=== PATIENT | male | born 1945 | race Caucasian/White ===

== ENCOUNTER 2025-06-21 17:11 | Emergency (ER) | payer MEDICARE, OTHER, SELFPAY ==
--- OUTSIDE RECORDS SUMMARY | 2021-04-07 07:46 | XMS_ITS | Continuity of Care Document ---
Author Organization [facility] ic Address [address] [place] [address] Phone Care Team Providers Care Complex Care Nurse Name Role Phone Lico [facility], Griselda Unavailable Unavailable Allergies, Adverse Reactions, Alerts Substance Reaction Status Criticality No Known Allergies Active No Inform ation Medications Medication Instructions Dosage Effective Dates (start - stop) Status Comments gatifloxacin 0.5 % eye drops instill 1 drop by ophthalmic route Right Eye 3 Times a Day 3 Days Before Surgery, continue for 7 days after surgery, then stop - Active Fill upon pt request. May Substitute with Vigamox or Zymaxid or Moxifloxacin ketorolac 0.5 % eye drops instill 1 drop by ophthalmic route Right Eye 2 times a day 3 days before surgery, then 4 times a day after surgery and taper as instructed - Active Fill upon pt request. prednisolone acetate 1 % eye drops,suspension instill 1 drop by ophthalmic route Right eye 4 times a day after surgery for 1 week, then Taper as Instructed - Active Fill upon pt request. gatifloxacin 0.5 % eye drops instill 1 drop by ophthalmic route Left Eye 3 Times a Day 3 Days Before Surgery, continue for 7 days after surgery, then stop - Active May Substitute with Vigamox or Zymaxid or Moxifloxacin ketorolac 0.5 % eye drops instill 1 drop by ophthalmic route Left Eye 2 times a day 3 days before surgery, then 4 times a day after surgery and taper as instructed - Active prednisolone acetate 1 % eye drops,suspension instill 1 drop by ophthalmic route Left eye 4 times a day after surgery for 1 week, then Taper as Instructed - Active AMLODIPINE BESYLATE (unknown strength) Not Available - Active METOPROLOL TARTRATE (unknown strength) Not Available - Active MULTIVITAMIN (unknown strength) Not Available - Active MAGNESIUM (unknown strength) Not Available - Active IBUPROFEN (unknown strength) Not Available - Active MELATONIN (unknown strength) Not Available - Active ZINC (unknown strength) Not Available - Active Procedures Procedure Date IOL Master Extracapsular Cataract Removal Extracapsular Cataract Removal IOL Master IOL Master IOL Master HIGHWAY INSPECTOR Extended E&M HIGHWAY INSPECTOR Extended E&M IOL Master Advance Directives Directive Yes / No Effective Date File Name No Information Encounters Encounter Description Practice Location Reason(s) For Visit Diagnoses Date Provider Providers Copied on Encounter [facility], [address] [place], [id number] , [place] tel: [phone] [facility] No Information [address]os[address] [place], [id number] , [place]. tel: [phone] [facility], [address] [place], [id number] , [place] tel: [phone] [facility] No Information [address] [place], [id number] , [place]. tel: [phone] Referring Provider: Lizandro Rico, [facility] [address], [address]. tel:[phone] [facility], [address] [place], [id number] , [place] tel: [phone] [facility] No Information [address] [place], [id number] , [place]. tel: [phone] Referring Provider: Lizandro Rico, [facility] [address], [address]. tel:[phone] [facility], [address] [place], [id number] , tel: [phone] [facility] Combined forms of age-related cataract, right eye [address] [place], [id number] , . tel: [phone] Referring Provider: Lizandro Rico, [facility] [address] [place] [address], [address]. tel:[phone] INSPECTOR Extended E&M [facility], [address] [place], [id number] , tel: [phone] [facility] [place] blurry vision (chief complaint) Combined forms of age-related cataract, bilateralMeibomian gland dysfunction left eye, upper and lower eyelidsMeibomian gland dysfunction right eye, upper and lower eyelidsBlepharochalas isVitreous degeneration of left eyeBenign neoplasm of connective tissue of eyelidPuckering of macula, bilateralOpen angle with borderline findings, low risk, bilateralMyopia, bilateralPresbyopia [address] [place] [id number] , . tel: [phone] Referring Provider: Lizandro Rico, [facility] [address] [place] [address], [address]. tel:[phone] Family History Family Member Type Diagnosis Age At Onset Sister Problem (finding) degenerative disorder o f macula Payers Payer name Insurance type Covered democrat ID Authoriza tierick(s) [employer] 16 [id number] Social History Type Description Quantity Date Captured Comments Alcohol Use Details Unknown Caffeine Use Details Unknown Tobacco Use Status No Information Smoking Status No Information Sex Male Chief Complaint And Reason For Visit No Information Reason For Referral Reason For Referral No Information Plan Of Treatment Date Type Action Status Referral Referred To: Walter Rivera MD [facility] [place] Ordered: Referrals: Family Medicine. Walter Rivera MD ordered History Of Present Illness Encounter Date Complaint History Of Prese nt Illness blurry vision Pt complains of VA OU decreasing over the last year. Pt has difficulty reading fine print and watching TV. Pt denies dryness and pain OU.Screening for COVID-19: Patient reports no close contact with known COVID-19. Patient denies any COVID-19 symptoms or recent travel. 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
[2025-06-21 17:12] VITALS: BP 141/81; PULSE 60; RESP 16; TEMP 36.6; O2SAT 96; BMI 28.9
--- NOTE | 2025-06-21 17:42 | CRLHL7_ITS ---
For Patients: As a result of the Century Cures Act, medical imaging exams and procedure reports are released immediately into your electronic medical record. You may view this report before your referring provider. If you have questions, please contact your health care provider. INDICATION: Syncope. TECHNIQUE: Chest 2 views. COMPARISON: None. FINDINGS: Cardiovascular and mediastinum: Heart size and vasculature are normal in caliber and appearance. Lungs and pleural spaces: Left basilar atelectasis. No sign of infiltrate or mass. No sign of pleural effusion. No pneumothorax. Bones and soft tissues: No significant findings. IMPRESSION: No acute or significant findings. Dictated by John Jimenez MD @ 06/21/2025 6:06:50 PM (Electronically Signed)
--- NOTE | 2025-06-21 17:42 | CRLHL7_ITS ---
For Patients: As a result of the Cures Act, medical imaging exams and procedure reports are released immediately into your electronic medical record. You may view this report before your referring provider. If you have questions, please contact your health care provider. Indication: Trauma. Technique: Left hand, 3 views. Comparison: None. Findings/Impression: Bones: Acute mildly displaced 5th digit proximal phalangeal base fracture. Additional lucency involving the 5th digit metacarpal base, possibly nondisplaced fracture. Recommend correlation with point tenderness. Joint spaces: Degenerative changes most pronounced at the triscaphe joint. Soft tissues: Associated soft tissue swelling. Dictated by John Jimenez MD @ 06/21/2025 6:08:55 PM (Electronically Signed)
--- NOTE | 2025-06-21 17:49 | ED.GENADULT ---
HPI - General Adult General Chief complaint: Fall/Minor Trauma Stated complaint: Injured Left Pinkie finger Time Seen by Provider: 06/21/25 17:22 Source: patient Mode of arrival: ambulatory Limitations: no limitations History of Present Illness HPI narrative: 80-year-old male presents to the emergency department with significant other for evaluation of hand injury. [place] [facility], in town for a wedding. He was at set waiting this afternoon, about 2 hours prior to arrival. He was walking up hill in the parking lot to Greet his son at the door of the rastafari. When he reached the door of the chart, he suddenly felt dizzy. He specifically describes this dizzy as a lightheadedness, there were no neurological changes, no vertigo like symptoms. He was still feeling lightheaded when he went to turn to go into the rastafari a few seconds later and in doing so fell into the door of the rastafari and lung down to the ground. There was no loss of consciousness. This was a very witnessed event. No seizure-like activity. He did fall onto his side. Reports hitting his elbow and right hand. He notes injury and some deformity of the right hand specifically at the 5th finger of the left hand. He does not take any anticoagulants. There is no altered mental status. Friends and family helped him up and helped him into the rastafari where he sat through the wedding with no difficulty. After completion of the wedding, they said their goodbyes to friends and family, he was able to walk easily back to the car and comes in for evaluation of a hand injury. He definitely downplays the lightheadedness but on specific questioning, it sounds like he had a similar episode about a week ago while he was working out in the [place]. It probably lasted for about 5 minutes. He sat down on a tree stump and eventually a past, therefore he decided it was not worth investigating further. He denies a history of AFib for arrhythmia. He has no history of coronary artery disease but admits that he has never had a reason to have an investigation for this. He does take metoprolol. He is not sure of his dose. But as we discussed possible doses further, he is pretty confident that he takes 50 mg tablets and uses 1-1/2 of them. He thinks it is 75 mg. Unfortunately we do not have a way to access these records. He denies any other areas of pain or injury. He is not having any chest pain. He denies any recent shortness of breath, fevers or illness. No dysuria or other symptoms of infection anywhere. He has no open sores or wounds. Denies a history of diabetes. He does follow up with his primary provider at least annually. Reports that he is up-to-date on typical preventative screenings and vaccines. Past medical history notable for gout and hypertension. Nonsmoker. Denies any alcohol use in the past 6 years. ROS is notable for the syncopal and hand symptoms as above. Otherwise denies times 12 systems today. Related Data Home Medications ?Medication ?Instructions ?Recorded ?Confirmed metoprolol tartrate 37.5 mg tablet 37.5 mg PO DAILY 06/21/25 06/21/25 Previous Rx's ?Medication ?Instructions ?Recorded losartan 50 mg tablet 50 mg PO DAILY #30 tabs 06/21/25 Allergies Allergy/AdvReac Type Severity Reaction Status Date / Time No Known Drug Allergies Allergy Verified 06/21/25 17:20 PFSH PFS Social History Smoking Status: Never smoker How often do you have a drink containing alcohol: never AUDIT-C Alcohol total score: 0 Non-prescribed substance use: denies use service: Yes Exam Const: Vital Signs, click to edit/add: Vital Signs - 24 hr 06/21/25 17:12 06/21/25 18:02 06/21/25 19:14 Temperature 97.8 F 97.8 F Pulse Rate [Right Pulse Oximeter] 60 60 Respiratory Rate 16 16 Blood Pressure [Ri ght Upper Arm] 141/81 H 141/81 H Pulse Oximetry 96 96 96 Oxygen Delivery Me thod Room Air Room Air Documenting provider has reviewed patient's vital signs: yes Common normals: no apparent distress and alert General appearance: cooperative and well kempt Other: Friendly, good historian. No fluctuations in story HENMT: Common normals: normocephalic, head/scalp atraumatic, moist oral mucous membranes and oropharynx normal Head and scalp: normocephalic and atraumatic Face and sinus: normal facial exam Mouth: oral and palatal mucosa normal Throat: posterior oropharynx normal Eye: Common normals: conjunctivae normal General eye: normal appearance of both eyes Conjunctiva: conjunctiva(e) normal Neck & C-Spine: Common normals: full ROM and no lymphadenopathy General: normal visual inspection Resp: Common normals: normal respiratory effort, no use of accessory muscles and clear to auscultation bilaterally Effort & inspection: able to speak in complete sentences Auscultation: clear to auscultation bilaterally Cardio: Common normals: regular rate, regular rhythm, S1 normal heart sound, S2 normal heart sound and no murmurs Rate: regular rate Rhythm: regular rhythm Heart sounds: S1 normal and S2 normal GI: Common normals: Normal to inspection, nondistended, normoactive bowel sounds present, soft to palpation, non-tender, no hepatosplenomegaly and no masses Palpation: soft and no hepatosplenomegaly Extremity: Other: Left elbow has a couple of superficial abrasions but no deformity. Normal range of motion. The left wrist has normal range of motion, no deformity or bruising. He has swelling and lateral deviation of the left 5th digit. Some tenderness and swelling of the left 5th metacarpal also. Capillary refill is intact. There is a small abrasion on the left 5th proximal phalanx as well. Remainder of the fingers and thumb have normal range of motion with no deficits. Neuro: Common normals: moves all extremities and no focal motor deficits Sensorium/orientation: alert Cranial nerves: CN normal except as noted Speech: speech normal Gait (neuro): normal gait Motor exam: strength 5/5 throughout, no tremor noted and no movement abnormalities noted Psych: Common normals: speech normal Appearance: well kempt Attitude: engaged Activity/motor behavior: appropriate eye contact Speech: normal speech Mood and affect: euthymic mood Insight: insight good Judgement: judgment good Skin: Common normals: no rashes or lesions noted General skin exam: no rashes or lesions noted Course Course ED Course: 80-year-old male with presyncopal episode today and a similar episode last week. His heart rate is around 60, I suspect he may be bradycardic and this may be worsened by his metoprolol but I cannot exclude an arrhythmia, coronary artery disease, congestive heart failure, infectious etiology, dehydration, electrolyte abnormality or other contributing factors. I do seem far more concerned to put this that he is that his family seems appreciative of this. I recommended that we obtain an EKG, typical screening labs for syncope, chest x-ray. No the hand does seem like it probably has a fracture at the finger or more likely the 5th metacarpal. Will obtain x-ray of this as well. Reevaluation(s) Time of Reevaluation #1: 20:06 Reevaluation #1: Counseled patient on findings. Overall his blood work looks excellent, chest x-ray looks good. There mild fractures of his proximal 5th finger and distal 5th metacarpal. They are not displaced. These are splinted and rangel taped to the ring finger with excellent anatomic alignment. Patient counseled on wearing the finger foam splint and rangel tape as much as possible for the next 4 weeks. May remove to shower. Will need to make a follow-up appointment with his primary care team or an orthopedic provider in a couple of weeks to have this re-examined. Or importantly we talked about the presyncopal spells. I do think this is related to his metoprolol. I think he is having some postural dizziness and bradycardia. He is visiting from out of town, it would be better for him if he did his workup through his primary care team. I recommend that he have a Holter monitor and echo ordered. I do recommend that he stop his metoprolol for now. He will start losartan Monday morning 1 pill daily. This has been sent to his pharmacy. He is returning back to his home tomorrow. I let him know that his bradycardia should improve in 3-5 days and his dizzy spells should improve if they were related to the metoprolol. He needs to bring the paperwork I have provided with him to his primary care appointment to help facilitate further workup. Alarm symptoms reviewed that would warrant re-evaluation in the ED in the interim. He verbalizes understanding and agreement and was ultimately thankful for the additional workup. Vital Signs Vital signs: Initial Vital Signs Temperature 97.8 F 06/21/25 17:12 Temperature Source Temporal Artery Scan 06/21/25 17:12 Pulse Rate 60 06/21/25 17:12 Pulse Rhythm Regular 06/21/25 17:12 Pulse Strength 3+ Normal 06/21/25 17:12 Respiratory Rate 16 06/21/25 17:12 Blood Pressure 141/81 H 06/21/25 17:12 Blood Pressure Mean 101 06/21/25 17:12 Blood Pressure Position Sitting 06/21/25 17:12 Pulse Oximetry 96 06/21/25 17:12 Oxygen Delivery Method Room Air 06/21/25 17:12 Vital Signs Temperature 97.8 F 06/21/25 17:12 Pulse Rate 60 06/21/25 17:12 Respiratory Rate 16 06/21/25 17:12 Blood Pressure 141/81 H 06/21/25 17:12 Pulse Oximetry 96 06/21/25 17:12 Oxygen Delivery Method Room Air 06/21/25 17:12 Temperature 97.8 F 06/21/25 18:02 Pulse Rate 60 06/21/25 18:02 Respiratory Rate 16 06/21/25 18:02 Blood Pressure 141/81 H 06/21/25 18:02 Pulse Oximetry 96 06/21/25 19:14 Oxygen Delivery Method Room Air 06/21/25 18:02 Medical Decision Making Lab Data Lab results reviewed: Yes I reviewed the patient's lab results Lab results narrative: No significant leukocytosis, no anemia. Normal electrolytes. Normal liver function, no elevation of inflammatory markers. No signs of heart failure or coronary artery disease. Excellent blood work Labs: Lab Results 06/21/25 Range/Units 18:17 WBC 7.76 (4.50-11.00) K/uL RBC 4.63 (4.30-5.90) m/uL Hgb 14.4 (13.5-17.5) gm/dL Hct 43.4 (37.0-53.0) % MCV 94 (80-100) fL MCH 31 (26-34) pg MCHC 33 (32-36) gm/dL RDW Coeff of Laura 13.1 (11.5-15.5) % Plt Count 189 (140-440) K/uL Neut % (Auto) 69.5 (42.0-72.0) % Lymph % (Auto) 17.1 L (20-44) % [place] % (Auto) 9.4 (0.0-11.0) % Eos % (Auto) 3.1 (0.0-7.0) % Baso % (Auto) 0.8 (0.0-3.0) % Neut # (Auto) 5.39 (1.7-7.0) K/uL Lymph # (Auto) 1.30 (0.90-2.90) K/uL [place] # (Auto) 0.70 (0.00-0.90) K/UL Eos # (Auto) 0.24 (0.00-0.50) K/uL Baso # (Auto) 0.06 (0.00-0.30) K/uL Abs Immat Gran (auto) 0.01 (0.00-0.30) K/uL Imm/Tot Granulo (auto) 0.1 % Sodium 137 (135-149) mmol/L Potassium 4.0 (3.6-5.1) mmol/L Chloride 107 (96-114) mmol/L Carbon Dioxide 23 (20-32) mmol/L Anion Gap 7 (7-15) mEq/L BUN 19 (7-30) mg/dL Creatinine 0.8 (0.5-1.5) mg/dL Estimated Creat Clear 69.64 Estimated GFR 90 ml/min Glucose 115 (60-115) mg/dL Lactate 1.1 (0.5-1.9) mmol/L Calcium 9.0 (8.4-10.6) mg/dL Total Bilirubin 0.6 (0.1-1.5) mg/dL AST 33 (12-35) U/L ALT 33 (4-50) U/L Alkaline Phosphatase 71 (40-150) U/L Troponin I < 0.01 (0.01-0.04) ng/mL C-Reactive Protein < 0.5 L (0.5-1.0) mg/dL NT-Pro-B Natriuret Pep 397 H (See Note) pg/mL Total Protein 7.3 (6.0-8.3) g/dL Albumin 4.2 (3.3-5.0) g/dL Imaging Data Chest x-ray: Attestation: I have reviewed the pertinent imaging results. My impression: Normal chest x-ray. No significant infiltrate, cardiomegaly or signs of any heart failure. Radiologist's impression: IMPRESSION: No acute or significant findings. Dictated by John Jimenez MD @ 06/21/2025 6:06:50 PM X-ray left hand: Attestation: I have reviewed the pertinent imaging results. My impression: Tiny fracture at the proximal 5th phalanx, near articulation of 2nd tiny fracture at distal 5th meta carpal. Remainder of hand appears normal Radiologist's impression: Findings/Impression: Bones: Acute mildly displaced 5th digit proximal phalangeal base fracture. Additional lucency involving the 5th digit metacarpal base, possibly nondisplaced fracture. Recommend correlation with point tenderness. Joint spaces: Degenerative changes most pronounced at the triscaphe joint. Soft tissues: Associated soft tissue swelling. Dictated by John Jimenez MD @ 06/21/2025 6:08:55 PM ECG Data Attestation: I personally reviewed and interpreted this ECG as follows: Prior ECG tracings: not available for review Interpretation: Sinus rhythm with a rate of 60. Intervals and axis appear normal. p-waves are biphasic. No significant ST or T-wave abnormalities. No ischemic changes. Discharge Plan Discharge Clinical Impression: Pre-syncope, Bradycardia, Fracture of finger of left hand Patient Disposition: Home w/ Parent or Adult Condition: Improved Instructions: Finger Fracture (ED) Additional Instructions: As we discussed, the finger fracture is fairly mild and it is not displaced. This means that the pieces of the fracture do align well and is not likely to need surgery. We have to keep it in the splint because the tendons it pull on the finger will cause things to heal improperly if it is not splinted. You may remove the splint to wash her hand or to shower, but try to keep it on at least 90% of the day. You will need to follow-up with an orthopedic provider in a couple of weeks to make sure that this is healing properly. Please have your primary care team help arrange this for you if you cannot schedule with an orthopedic provider your self. The overall prognosis for this is quite good. It is okay to use Tylenol or ibuprofen as needed for mild discomfort. Plan to wear the splint for 4 weeks. Thank you for allowing me to properly workup these lightheaded spells that you have been having. Our workup did not show any problems with your electrolytes, kidneys, there were no signs of heart attack or infection. It did show through monitoring in the emergency room that your heart rate has been running lower. This most likely is a side effect of your metoprolol. This is a great medication for many people to treat her blood pressure but sometimes as people age, they do not tolerate this medication as well. We did not detect any low blood pressures, just a low pulse. Because of this, I am recommending that you stop the metoprolol and that we start you on a different medication that does not lower your blood pressure. I have sent a prescription for losartan to your pharmacy. I do want you to cold turkey. Your metoprolol and start taking the losartan Monday morning. It will take a couple of days for this to fully kick in and your blood pressure may be a little bit higher for a couple of days but do not panic. The good news is that within about 3-5 days of being off of the metoprolol, your pulse should improve to normal and if your dizzy spells. , we do have our answer as to what has been causing these spells. I will need you to make a follow-up appointment with your primary care doctor in 1-2 weeks. They will need to recheck your blood pressure, recheck her pulse and perform the rest of the workup that we could not do here for you. I would recommend that you have a Holter monitor placed to monitor your heart rate and that you also have an echo which is an ultrasound of the heart to work this up more clearly. We did not detect any signs of problems other than low pulse on your EKG today. Please bring this paperwork with you to the appointment so they can see our train of thought. They can also request our records if needed. Activity Level: Activity as Tolerated Discharge Diet: Regular Prescriptions: New losartan 50 mg tablet 50 mg PO DAILY Qty: 30 0RF No Action metoprolol tartrate 37.5 mg tablet 37.5 mg PO DAILY Follow Up/Referrals: Provider,Not a Local [Primary Care Provider, Family Practice] Stand Alone Forms: [employer] Info Instructions
[2025-06-21 18:02] VITALS: BP 141/81; PULSE 60; RESP 16; TEMP 36.6; O2SAT 96
[2025-06-21 18:25] LABS: Lactate* 1.1 mmol/L (0.5-1.9)
[2025-06-21 18:26] LABS: Hematocrit* 43.4 % (37.0-53.0); Hemoglobin* 14.4 gm/dL (13.5-17.5); Immature Granulocytes Abs Auto 0.01 K/uL (0.00-0.30); Immature Granulocytes Pct Auto 0.1 %; Mean Corpuscular HGB Conc 33 gm/dL (32-36); Mean Corpuscular Hemoglobin 31 pg (26-34); Mean Corpuscular Volume 94 fL (80-100); RDW Coefficient of Variation % 13.1 % (11.5-15.5); Red Blood Count* 4.63 m/uL (4.30-5.90); White Blood Count* 7.76 K/uL (4.50-11.00)
[2025-06-21 18:27] LABS: Lymphocytes Absolute Auto 1.30 K/uL (0.90-2.90); Slide Review Reflex No
[2025-06-21 18:42] LABS: Albumin* 4.2 g/dL (3.3-5.0); Chloride* 107 mmol/L (96-114); Sodium* 137 mmol/L (135-149)
[2025-06-21 18:43] LABS: Potassium* 4.0 mmol/L (3.6-5.1)
[2025-06-21 18:45] LABS: Alanine Aminotransferase* 33 U/L (4-50); Aspartate Amino Transferase* 33 U/L (12-35); Blood Urea Nitrogen* 19 mg/dL (7-30); Creatinine* 0.8 mg/dL (0.5-1.5); Est. Creatinine Clearance* 69.64; Estimated Glomerular Filt Rate 90 ml/min
[2025-06-21 18:46] LABS: Alkaline Phosphatase* 71 U/L (40-150); Anion Gap 7 mEq/L (7-15); Bilirubin Total* 0.6 mg/dL (0.1-1.5); Calcium* 9.0 mg/dL (8.4-10.6); Carbon Dioxide* 23 mmol/L (20-32); Glucose* 115 mg/dL (60-115); Total Protein* 7.3 g/dL (6.0-8.3)
[2025-06-21 18:59] LABS: NT Pro B Type NatriureticPept* 397 pg/mL (See Note)
[2025-06-21 19:14] VITALS: O2SAT 96
--- OUTSIDE RECORDS SUMMARY | 2025-06-21 19:24 | XMS_ITS | Clinical Summary ---
Author Organization [facility] Address [address] [place] [id number] Care Team Providers Care Dental Services Director Name Role Phone Bubba Rivera MD Primary Care Provider + Allergies No known active allergies Medications * This document contains information received from the source organization and may not represent a complete record from that organization. Patients Unique Medication From Home Take 3 capsules by mouth once daily. Nutrilite Double X supplement Active Patients Unique Medication From Home Take 1 capsule by mouth once daily. Nutrilite Joint Health Supplement Active amLODIPine (NORVASC) 10 mg tablet Take 10 mg by mouth once daily. Active metoprolol succinate (TOPROL XL) 100 mg Sustained-Relea se tablet Take 100 mg by mouth once daily. Active ibuprofen (ADVIL; MOTRIN) 200 mg tablet Take 400 mg by mouth every 4 hours if needed for Pain (WRIST PAIN). Active gabapentin (NEURONTIN) 300 mg capsule Take 600 mg by mouth once daily. Active Active Problems Problem Noted Date Diagnosed Date Acute lymphangitis of extremity 04/26/2016 POSTNASAL DRIP SYNDROME 04/13/2010 REFLUX ESOPHAGITIS HYPERTENSION INGUINAL HERNIAS, BILATERAL Overview (05/07/2012): Especially on the right ALCOHOL USE, CHRONIC Overview (05/07/2012): Chronic use but moderated GOUT HELICOBACTER PYLORI GASTRITIS Resolved Problems Problem Noted Date Diagnosed Date Resolved Date UNSPECIFIED DISORDER OF LIVER 04/26/2016 Overview (05/07/2012): Liver dysfunction - probably alcohol related Family History Medical History Relation Name Comments Cancer-prostate Brother 1 Hypertension Brother 1 Other Brother 1 Peptic acid dis ease Cancer Father Liver cancer Cancer Mother Gallbladder can cer Relation Name Status Comments Brother 1 Father (Age 66) Panc Cance r Mother (Age 69) Gall Bladd er Cancer Social History Tobacco Use Types Packs/Day Years Used Date Smoking Tobacco: Former Cigarettes Q uit: 09/18/1959 Smokeless Tobacco: Never Tobacco Cessation:Counseling Given: No Alcohol Use Standard Drinks/Week Comments Yes 0 (1 standard drink = 0.6 oz pur e alcohol) 1 glass wine per night Sex and Gender Information Value Date Recorded Sex Assigned at Not on file 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 Gender Identity Not on file Sexual Orientation Not on file Obstetrics History Last Filed Vital Signs Vital Sign Reading Time Taken Comments Blood Pressure 154/98 04/28/2016 8:04 AM CDT Pulse 71 04/28/2016 8:04 AM CDT Temperature 36.7 C (98.1 F) 04/28/2016 8:04 AM CDT Respiratory Rate 16 04/28/2016 8:04 AM CDT Oxygen Saturation 95% 04/28/2016 8:04 AM CDT Inhaled Oxygen Concentration - - Weight 112.6 kg (248 lb 3.8 oz) 04/27/2016 5:28 AM CDT Height 188 cm (6' 2.02) 04/26/2016 2:36 PM CDT Body Mass Index 31.86 04/26/2016 2:36 PM CDT Plan of Treatment Health Maintenance Due Date Last Done Comments Tetanus booster 1957 Depression screening for age 12+ 1958 Hepatitis C screening for ag e 18-79 1964 Pneumococcal series for age 50+ (1 of 1 - PCV) 1996 Zoster (shingles) series for age 50+ (1 of 2) 1996 BMI (ht and wt on same day) for age 18+ 04/26/2017 04/26/2016, 04/25/2016, 04/10/2016 RSV vaccine for adults or (1 - 1-dose 75+ series) 2021 COVID-19 vaccine series ( - 2023- season) 2025 Influenza Vaccine (#1) 2025 Hepatitis B series for 19+ Aged Out N o longer eligible based on patient's age to complete this topic Insurance MEDICARE PROVIDER BASED MR [place] Advance Directives * Full Code (Latest Code Status on File) Date Activated Date Inactivated Comments 04/26/2016 3:39 PM 04/28/2016 12:10 PM Question Answer Comments Code Status Discussion: Discussed * Full Code Date Activated Date Inactivated Comments 04/26/2016 2:26 PM 04/26/2016 3:39 PM Question Answer Comments Code Status Discussion: Not Discussed Care Teams Dental Services Director Relationship Specialty Start Date End Date Bubba Rivera MD PCP - General Family Practice 04/10/16
--- OUTSIDE RECORDS SUMMARY | 2025-06-21 19:24 | XMS_ITS | Clinical Summary ---
Author Organization [facility] Address [address] [place] [address]. [place] [address] Care Team Providers Care Ore Mixer Name Role Phone Bubba Rivera Primary Care Provider Kenneth Galaviz APRN [employer] Unavailable [phone] Allergies No known active allergies Medications metoprolol succinate (TOPROL-XL) 100 MG 24 hr tablet Take 100 mg by mouth daily Active UNABLE TO FIND Take 1 tablet by mouth daily Take 1 capsule by mouth once daily. Nutrilite Joint Health Supplement Active rosuvastatin (CRESTOR) 10 MG tablet Take 10 mg by mouth daily. Active clopidogrel (PLAVIX) 75 MG tablet Take 75 mg by mouth. 4 Active predniSONE (DELTASONE) 20 MG tabletIndicatio ns:Acute right-sided low back pain without sciatica Take 2 daily for 4 days, then 1 daily for 4 days. 12 tablet 5 Active HYDROcodone-puja taminophen (NORCO) 5-325 MG tabletIndicatio ns:Acute right-sided low back pain without sciatica Take 1 tablet by mouth every 6 hours as needed for pain. 15 tablet 5 Active Active Problems Problem Noted Date Diagnosed Date Alcohol abuse 10/18/2017 Overview (10/18/2017): Overview: Chronic use but moderated Gout 10/18/2017 Helicobacter pylori infection 10/18/2017 Hypertension 10/18/2017 Bilateral inguinal hernia 10/18/2017 Overview (10/18/2017): Overview: Especially on the right Reflux esophagitis 10/18/2017 Acute lymphangitis of extremity 04/26/2016 Postnasal drip 04/13/2010 Immunizations Immunization Administration Dates Next Due Influenza (High Dose) Trivalent,PF (Fluzone) 10/2015,07/19/2016 Influenza (IIV3) PF 08/11/2015 Pneumo Conj 13-V (2010&after) 09/08/2015 Pneumococcal 23 valent 04/01/2013 TD,PF 7+ (Tenivac) 07/13/2006 TDAP (Adacel,Boostrix) 06/20/2012 TDAP Vaccine (Boostrix) 05/22/2020 Family History Medical History Relation Comments Hypertension Brother Hypertension Other - See Comments Brother Peptic acid disease Prostate Cancer Brother Cancer-prostate Cancer Father Cancer,Liver can cer Cancer Mother Cancer,Gallbladd er cancer Relation Status Comments Brother Father (Age 66) Panc Cancer Mother (Age 69) Gall Bladder C ancer Social History Tobacco Use Types Packs/Day Years Used Date Smoking Tobacco: Former Cigarettes Q uit: 09/18/1959 Passive Smoke Exposure: Never Smokeless Tobacco: Never Alcohol Use Standard Drinks/Week Comments Not Currently 0 (1 standard drink = 0.6 oz pure alcohol) Alcoholic Drinks/day: 1 glass wine per night PHQ-2 Answer Date Recorded PHQ-2 Score 0 02/22/2025 Adolescent Education Answer Date Record ed Getting School Help Needed Not on file 06/09 Interpersonal Safety Answer Date Record ed Do you feel physically and e motionally safe where you currently live? Yes 02/22/2025 Within the past 12 months, h ave you been hit, slapped, kicked or otherwise physically hurt by someone? No 02/22/2025 Within the past 12 months, h ave you been humiliated or emotionally abused in other ways by your partner or ex-partner? 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 Gender Identity Not on file Sexual Orientation Not on file Last Filed Vital Signs Vital Sign Reading Time Taken Comments Blood Pressure 132/74 02/22/2025 2:58 PM CDT Pulse 54 02/22/2025 2:58 PM CDT Temperature 36.2 C (97.1 F) 02/22/2025 2:58 PM CDT Respiratory Rate 16 02/22/2025 2:58 PM CDT Oxygen Saturation 95% 02/22/2025 2:58 PM CDT RA Inhaled Oxygen Concentration - - Weight 105.5 kg (232 lb 9.6 oz) 02/22/2025 2:58 PM CDT Height 185.4 cm (6' 1) 02/22/2025 2:58 PM CDT Body Mass Index 30.69 02/22/2025 2:58 PM CDT Plan of Treatment Health Maintenance Due Date Last Done Comments ADVANCE CARE PLANNING 1945 ANNUAL REVIEW OF HM ORDERS 1945 LIPID 1945 HEPATITIS C SCREENING 1964 ZOSTER VACCINE (1 of 2) 1996 MEDICARE ANNUAL WELLNESS VISIT 11/25/2020 11/26/2019, 12/05/2016, 08/22/2014, Additional history exists RSV VACCINE (1 - 1-dose 75+ series) 2021 BMP 11/14/2023 11/14/2022, 04/0 09/2020, 04/27/2016 COVID-19 VACCINE ( season) 2025 INFLUENZA VACCINE (#1) 2025 6, 07/19/2016, 08/11/2015 FALL RISK ASSESSMENT 11/11/2025 11/11/2024 DIABETES SCREENING 11/14/2025 11/14/2022, 0 12/17/2020, 04/27/2016 DTAP/TDAP/TD VACCINE (3 - Td or Tdap) 05/22/2030 05/22/2020, 06/20/2012, 07/13/2006 PNEUMOCOCCAL VACCINE 50+ YEARS Completed 09/08/2015, 04/01/2013 LUNG CANCER SCREENING Discontinued 12/17/2020 COLORECTAL CANCER SCREENING Discontinued sDNA (Cologuard) Discontinued 01/12/2022 PHQ-2 (once per calendar year) Completed 02/22/2025, 11/11/2024, 11/14/[address] COLONOGRAPHY Discontinued FIT Discontinued FLEX SIG Discontinued HPV VACCINE (No Doses Required) Completed MENINGITIS VACCINE Aged Out No longer eligible based on patient's age to complete this topic Procedures Procedure Name Priority Date/Time Associated Diagnosis Comments COMPREHENSIVE METABOLIC PANEL Routine 11/14/2022 12:16 PM [employer] Pain and swelling of toe of right foot CT CHEST PULMONARY EMBOLISM W CONTRAST STAT 12/17/2020 5:58 PM CDT from Last 3 Months or Most Recently Relevant to Health Maintenance Results * (ABNORMAL) Comprehensive Metabolic Panel (11/14/2022 12:16 PM [employer]TAIN) Sodium 136 136 - 145 mmol/L 11/14/2022 12:[address] [facility] Potassium 5.5(H) 3.4 - 5.3 mmol/L 11/14/2022 12:[address] [facility] Chloride 101 98 - 107 mmol/L 11/14/2022 12:[address] [facility] Carbon Dioxide (CO2) 29 22 - 29 mmol/L 11/14/2022 12:[address] [facility] Anion Gap 6(L) 7 - 15 mmol/L 11/14/2022 12:[address] [facility] Urea Nitrogen 23.3(H) 8.0 - 23.0 mg/dL 11/14/2022 12:[address] [facility] Creatinine 0.79 0.67 - 1.17 mg/dL 11/14/2022 12:[address] [facility] Calcium 9.6 8.8 - 10.2 mg/dL 11/14/2022 12:[address] [facility] Glucose 95 70 - 99 mg/dL 11/14/2022 12:[address] [facility] Alkaline Phosphatase 83 40 - 129 U/L 11/14/2022 12:[address] [facility] AST 16 10 - 50 U/L 11/14/2022 12:[address] [facility] ALT 28 10 - 50 U/L 11/14/2022 12:[address] [facility] Protein Total 7.3 6.4 - 8.3 g/dL 11/14/2022 12:[address] [facility] Albumin 4.2 3.5 - 5.2 g/dL 11/14/2022 12:[address] [facility] Bilirubin Total 0.8 <=1.2 mg/dL 11/14/2022 12:[address] [facility] GFR Estimate >90 >60 mL/min/1.7 3m2 11/14/2022 12:51 PM [facility] [facility] Comment:eGFR calculated usin 2020 CKD-EPI equation. Blood BLOOD SPECIMEN / Unknown Venipuncture / Unknown 11/14/2022 12:16 PM [employer] 11/14/2022 12:26 PM [employer] Jose Luis Marquis Philip HEARD [employer] [facility] - BLOOD ORDERABLES Final Result LABORATORY [facility] [address] [place] [address], [facility] [phone] * CT Chest Pulmonary Embolism w Contrast (12/17/2020 5:58 PM CDT) Anatomical Region Laterality Modality Chest, SUBRAD CT BODY, UMP CT CHEST Computed Tomography Impressions 12/17/2020 6:32 PM CDT IMPRESSION: No evidence of pulmonary embolism. Patchy bilateral airspace opacities in a pattern suggestive of atypical/viral pneumonia. SHANNON MURPHY MD Narrative 12/17/2020 6:[address] CHEST PULMONARY EMBOLISM W CONTRAST HISTORY: 75 years Male PE suspected, low/intermediate prob, positive D-dimer TECHNIQUE: Axial CT imaging of the chest was performed With intravenous contrast. Coronal and sagittal reconstructions were obtained. COMPARISON: None FINDINGS: Is no evidence of pulmonary embolism. There is no evidence of thoracic aortic aneurysm or dissection. There is no mediastinal or hilar or axillary lymphadenopathy. There is patchy groundglass airspace opacity bilaterally. No concerning osseous lesions are identified Procedure Note Shannon Murphy MD - 12/17/2020 CT CHEST PULMONARY EMBOLISM W CONTRAST HISTORY: 75 years Male PE suspected, low/intermediate prob, positive D-dimer TECHNIQUE: Axial CT imaging of the chest was performed With intravenous contrast. Coronal and sagittal reconstructions were obtained. COMPARISON: None FINDINGS: Is no evidence of pulmonary embolism. There is no evidence of thoracic aortic aneurysm or dissection. There is no mediastinal or hilar or axillary lymphadenopathy. There is patchy groundglass airspace opacity bilaterally. No concerning osseous lesions are identified IMPRESSION: No evidence of pulmonary embolism. Patchy bilateral airspace opacities in a pattern suggestive of atypical/viral pneumonia. SHANNON MURPHY MD Teo Leone MD IMG CT ORDERABLES Final Result from Last 3 Months or Most Recently Relevant to Health Maintenance Insurance [employer] MED[employer] Care Teams Ore Mixer Relationship Specialty Start Date End Date Bubba Rivera [address] [place] [address] [place] [address] PCP - General Family Practice 05/22/20 Kenneth Galaviz APRN [employer] [address] [place] [address] Assigned PCP 12/08/24
[2025-06-21 20:12] VITALS: BP 134/71; PULSE 68; RESP 16; TEMP 36.6; O2SAT 96
[2025-06-21 20:17] VITALS: BP 134/71; PULSE 68; RESP 16; TEMP 36.6
== END 2025-06-21 20:18 | disposition home or self-care (01) ==
PROVIDERS: Emergency Provider Family Medicine
DX: R55 Syncope and collapse (principal); R00.1 Bradycardia, unspecified; S62.617A Displaced fracture of proximal phalanx of left little finger, initial encounter for closed fracture; W18.39XA Other fall on same level, initial encounter; Y93.89 Activity, other specified; Y92.22 Religious institution as the place of occurrence of the external cause
CPT/HCPCS: 36415; 71046; 73130; 80053; 83605; 83880; 84484; 85025; 86140; 93005; 94761; 99284; 99285